=== PATIENT | female | born 1935 | race Caucasian/White ===

== ENCOUNTER 2019-02-26 11:03 | Emergency (ER) | payer BC ==
--- NOTE | 2019-02-26 11:17 | PDOC ---
History of Present Illness - General Chief Complaint: Chest Pain Stated Complaint: chest and right arm pain Time Seen by Provider: 02/26/19 11:16 - History of Present Illness Initial Comments: 02/26/19 15:11 Chief complaint: Numbness tingling pain left and right arms History of present illness: Patient in usual state of good health until Sunday, when she developed moments of numbness tingling and painin her left arm. The symptoms were fleeting, lasting less than 1 minute, but occasionally radiated from the arm to the shoulder and across the left chest. the symptoms resolved but recurred again this morning, this time in the right arm and without radiation to the chest. Review of systems: Denies any sustained chest pain or chest pain described as tightness or heaviness. Denies shortness of breath. Denies nausea, vomiting, diaphoresis, lightheadedness, dizziness, palpitations. Denies headache, URI symptoms, sore throat, cough, abdominal pain, urinary symptoms, vaginal bleeding or discharge. Admits severe degenerative arthritis, but no severe recent exacerbation of neck pain Past medical history: Osteoarthritis, but otherwise healthy.Ventral hernia, advised to "leave it alone" no symptoms. Specifically denies heart, lung, or abdominal problems. No surgeries Social history: Active, without disability, lives with family. No tobacco alcohol or nonprescription drugs Family history: Reviewed and noncontributory including early coronary artery disease, metabolic disease including diabetes, TIA, stroke, PVD, cancer. Physical exam: Alert and oriented well-developed well-nourished no acute distress cheerful and cooperative. Asymptomatic at present Afebrile, vital signs normal PERRLA, fundi benign, ENT clear Neck supple without bruit mass or nodes. Chest clear with full breath sounds throughout bilaterally. CV regular without murmur rub or gallop pulses full and symmetric no JVD or edema Abdomen soft without mass tenderness organomegaly Neurological C2 to 12 intact. Strength full and symmetric. No focal sensory or motor deficits. Gait stable and unimpaired. Remedies no CCE Skin clear, no rash, adequate turgor and wet mucous membranes Impression: Fleeting neurological symptoms in the extremities, most likely due to cervical radiculopathy. With normal exam, unlikely that this is cardiac or neurological in origin Plan: CBC, chemistries, EKG and cardiac enzymes. Further evaluation depending on results. Past History - Past Medical History Allergies/Adverse Reactions: Allergies Allergy/AdvReac Type Severity Reaction Status Date / Time No Known Drug Allergies Allergy Verified 02/26/19 11:14 Home Medications: Ambulatory Orders Multivit-Min/FA/Lycopen/Lutein [Centrum Silver Tablet] 1 each PO ASDIR 02/26/19 Anemia: No Asthma: No Cancer: No Cardiac Disorders: Yes (murmur) CVA: No COPD: No CHF: No Dementia: No Diabetes: No GI Disorders: Yes (hernia) Disorders: No HTN: No Hypercholesterolemia: No Kidney Stones: Yes Liver Disease: No Seizures: No Thyroid Disease: No - Surgical History Appendectomy: Yes - Suicide/Smoking/Psychosocial Hx Smoking History: Never smoked Hx Alcohol Use: No Drug/Substance Use Hx: No Substance Use Type: None Cardiac Specific PMH - Complaint Specific PMHX Pacemaker: No *Physical Exam - Vital Signs Last Vital Signs Temp Pulse Resp BP Pulse Ox 98.4 F 70 17 121/61 100 02/26/19 11:04 02/26/19 13:56 02/26/19 13:56 02/26/19 13:56 02/26/19 13:56 ED Treatment Course - LABORATORY CBC & Chemistry Diagram: 02/26/19 11:32 02/26/19 11:32 - ADDITIONAL ORDERS Additional order review: Laboratory Results 02/26/19 02/26/19 11:32 11:32 Sodium 139 Potassium 4.3 Chloride 107 Carbon Dioxide 25 Anion Gap 7 L BUN 19 H Creatinine 0.9 Creat Clearance w eGFR 59.51 Random Glucose 96 Calcium 9.2 Total Bilirubin 0.7 AST 22 ALT 17 Alkaline Phosphatase 73 Creatine Kinase 139 Troponin I < 0.03 Total Protein 7.2 Albumin 4.1 02/26/19 11:32 RBC 3.88 MCV 93.6 MCHC 33.8 RDW 12.4 MPV 7.6 Neutrophils % 65.0 Lymphocytes % 25.6 Monocytes % 8.0 Eosinophils % 0.6 Basophils % 0.8 - RADIOLOGY Radiology Studies Ordered: Category Date Time Status CHEST X-RAY PORTABLE* [RAD] Stat Radiology 02/26/19 11:17 Completed Medical Decision Making - Medical Decision Making 02/26/19 15:22 EKG shows a normal sinus rhythm 66/m. Normal axes and intervals. There is a right bundle-branch block. No acute ST-T wave elevations. Otherwise, the T-wave evaluation is unreliable due to the bundle-branch block. In an effort to obtain an old EKG, primary care physician and large hospital contacted. They were unable to locate copies of a prior EKG. CBC, chemistries, including cardiac enzymes, without significant abnormalities Patient's clinical condition is extremely good. She is mentally sound and there is no abnormality on physical exam. She is experiencing no symptoms now. The nature of her numbness tingling and pain, experienced as sharp, momentary sensations in the extremities, resolving completely, and recurrent, suggests peripheral nerve origin This was discussed with the patient. Although she has had no severe neck pain, measures to minimize cervical radiculopathy were discussed. She agrees to be closely observed by her family and return to the ER if further symptoms develop. Otherwise to follow-up with primary physician for further evaluation. Fully ambulatory, asymptomatic, and extremely happy and cheerful at discharge with family to follow-up as directed *DC/Admit/Observation/Transfer Diagnosis at time of Disposition: Cervical radiculopathy - Discharge Dispostion Disposition: HOME Condition at time of disposition: Stable Decision to Admit order: No - Referrals - Patient Instructions Printed Discharge Instructions: DI for Cervical Radiculopathy Additional Instructions: Return to ER if symptoms worsen, or if there are associated symptoms such as nausea, vomiting, lightheadedness, dizziness, perspiring, sustained chest pain, with or without radiation to the arm or the jaw. Otherwise see primary physician for follow-up. Consider consultation with neurologist if numbness and tingling worsen. - Post Discharge Activity
[2019-02-26 11:19] VITALS: TEMP 98.4; BMI 19.6
[2019-02-26 11:42] LABS: BASO % 0.8 % (0-2.0); EOS % 0.6 % (0-4.5); HEMATOCRIT 36.3 % (32.4-45.2); HEMOGLOBIN 12.3 GM/dl (10.7-15.3); LYMPH % 25.6 % (8-40); MCH 31.6 pg (25.7-33.7); MCHC 33.8 g/dl (32.0-36.0); MEAN CELL VOLUME 93.6 fl (80-96); MEAN PLT VOLUME 7.6 fl (7.5-11.1); PLATELET COUNT 236 K/MM3 (134-434); RBC 3.88 M/mm3 (3.60-5.2); RDW 12.4 % (11.6-15.6); WHITE BLOOD COUNT 7.3 K/mm3 (4.0-10.8)
[2019-02-26 11:51] LABS: ALBUMIN 4.1 g/dl (3.4-5.0); ALK PHOS 73 U/L (45-117); ANION GAP 7 MMOL/L (8-16); BILIRUBIN,TOTAL 0.7 mg/dl (0.2-1); BLOOD UREA NITROGEN 19 mg/dl (7-18); CALCIUM 9.2 mg/dl (8.5-10); CHLORIDE 107 mmol/L (98-107); CO2 25 mmol/L (21-32); CREATININE 0.9 mg/dl (0.55-1.3); GLUCOSE,RANDOM 96 mg/dl (74-106); POTASSIUM 4.3 mmol/L (3.5-5.1); SGOT/AST 22 U/L (15-37); SGPT/ALT 17 U/L (13-61); SODIUM 139 mmol/L (136-145); TOT PROT 7.2 g/dl (6.4-8.2)
[2019-02-26 13:56] VITALS: BP 121/61; PULSE 70
--- NOTE | 2019-02-27 12:10 | EKG ---
Test Reason : Blood Pressure : / mmHG Vent. Rate : 066 BPM Atrial Rate : 066 BPM P-R Int : 154 ms QRS Dur : 130 ms QT Int : 442 ms P-R-T Axes : -03 041 047 degrees QTc Int : 463 ms NORMAL SINUS RHYTHM RIGHT BUNDLE BRANCH BLOCK T WAVE ABNORMALITY, CONSIDER LATERAL ISCHEMIA ABNORMAL ECG NO PREVIOUS ECGS AVAILABLE Confirmed by ROCHELLE MACK MD ([id number]) on 02/27/2019 12:09:36 PM Referred By: RACHEL MCKAY Confirmed By:ROCHELLE MACK MD
== END 2019-02-26 14:39 | disposition home or self-care (01) ==
LOC: FER 11:03
DX: M54.12 Radiculopathy, cervical region (principal); R01.1 Cardiac murmur, unspecified; Z87.442 Personal history of urinary calculi
CPT/HCPCS: 36415; 71045-TC-FY; 80053; 82550; 84484; 85025; 93005; 99283-25